=== PATIENT | female | born 1965 | race Caucasian/White ===

== ENCOUNTER 2024-11-13 01:43 | Emergency (ER) | payer OTHER ==
[2024-11-13 01:59] VITALS: BP 167/94; PULSE 92; RESP 26; TEMP 98.4; BMI 25.7
[2024-11-13] MEDS: LORazepam 2 MG TABLET PO ONE (03:19)
[2024-11-13] MEDS ORDERED: LORazepam 1 MG TABLET ONE (03:21)
[2024-11-13 03:27] LABS: BASO % 0.5 % (0-2.0); EOS % 0.7 % (0-4.5); HEMATOCRIT 37.5 % (32.4-45.2); HEMOGLOBIN 12.6 GM/dL (10.7-15.3); LYMPH % 27.8 % (8-40); MCH 31.8 pg (25.7-33.7); MCHC 33.5 g/dl (32.0-36.0); MEAN CELL VOLUME 94.8 fl (80-96); MEAN PLT VOLUME 8.6 fl (7.5-11.1); MONO % 7.4 % (3.8-10.2); NEUT % 63.6 % (42.8-82.8); PLATELET COUNT 288 10^3/uL (134-434); RBC 3.96 M/mm3 (3.60-5.2); RDW 12.3 % (11.6-15.6); WHITE BLOOD COUNT 11.1 K/mm3 (4.0-10.0)
[2024-11-13 03:35] LABS: VENOUS BASE EXCESS -0.2 mmol/L (-2-2); VENOUS O2 SATURATION 58.5 % (70-80); VENOUS PCO2 33.8 mmHg (38-52); VENOUS PH 7.452 (7.310-7.410)
[2024-11-13 03:39] LABS: INR 0.99 (0.83-1.09); PROTHROMBIN TIME (PATIENT) 10.9 SEC (9.7-13.0)
[2024-11-13 03:46] LABS: POTASSIUM 4.1 mmol/L (3.5-5.1)
[2024-11-13 03:49] LABS: BLOOD UREA NITROGEN 20.6 mg/dL (7-18); MAGNESIUM 1.8 mg/dL (1.8-2.4)
[2024-11-13 03:52] LABS: CREATININE 1.1 mg/dL (0.55-1.3)
[2024-11-13 03:53] LABS: BILIRUBIN,TOTAL 0.3 mg/dL (0.2-1); TOT PROT 7.4 g/dl (6.4-8.2)
[2024-11-13] MEDS: LACTATED RINGERS SOLUTION 1,000 ML/1,000 ML INFUS.BAG IV SCH (05:58)
== END 2024-11-13 06:41 | disposition home or self-care (01) ==
LOC: JER 01:43
DX: R06.02 Shortness of breath (principal); R00.2 Palpitations; R42 Dizziness and giddiness; R11.0 Nausea; F41.9 Anxiety disorder, unspecified; Z20.822 Contact with and (suspected) exposure to COVID-19
CPT/HCPCS: 0241U-QW; 36415; 71046-TC-FY; 80053; 82803; 82962; 83735; 84484; 85025; 85610; 93005; 93010; 99285-25